=== PATIENT | female | born 1965 | race African-American/Black ===

== ENCOUNTER 2022-07-25 16:36 | Outpatient (CLI) | payer OTHER, SELFPAY ==
--- NOTE | ~2022-07-25 | CT_ITS ---
EXAMINATION:CT lung screening DATE: 07/25/2022 16:55 INDICATION: Tobacco use. Current smoker with 36 pack year history. TECHNIQUE: Computed tomography (CT) of the chest was performed without intravenous contrast. Automate d exposure control and iterative reconstruction technique were employed. The dose-length product (DLP ) was 103.70 mGy-cm. COMPARISON: Chest CT 03/22/2013 FINDINGS: There is stable mild scarring at the lung apices. There is mild emphysema. There is a 2 mm nodule in left upper lobe. There is a 2 mm nodule in right upper lobe. There is minimal atelectasis b ilaterally. No pleural effusion. The heart size is normal. No pericardial effusion. There is a small sliding hiatal hernia. There is mild thoracic spondylosis. IMPRESSION: 1. Lung-RADS category 2: Benign appearance or behavior. Continue annual screening with noncontrast lo w-dose chest CT in 12 months. Reviewed, dictated and finalized at location A. INTERN IMPRESSION: 1. Lung-RADS category 2: Benign appearance or behavior. Continue annual screeni ng with noncontrast low-dose chest CT in 12 months.
== END 2022-07-25 16:37 | disposition home or self-care (01) ==
PROVIDERS: PCP Emergency Medicine; Visit Provider Emergency Medicine
DX: Z12.2 Encounter for screening for malignant neoplasm of respiratory organs (principal); Z72.0 Tobacco use
CPT/HCPCS: 71271

== ENCOUNTER 2022-09-19 17:15 | Outpatient (CLI) | payer OTHER, SELFPAY ==
--- NOTE | ~2022-09-19 | MM_ITS ---
EXAMINATION: MM screening kajal BI w clau HISTORY: Screening mammogram TECHNIQUE: Craniocaudal and mediolateral oblique 3-D tomosynthesis images were obtained and synthetic 2-D images were generated. CAD analysis was submitted and interpreted. COMPARISON: 04/08/2014 bilateral screening mammogram BREAST PARENCHYMAL COMPOSITION: The breasts are almost entirely fatty. FINDINGS: There is no evidence of suspicious mass, calcification, or architectural distortion to sugg est malignancy in either breast. There has been no suspicious interval change. IMPRESSION: 1. No mammographic evidence of malignancy. 2. Recommend routine screening mammography in one year. BI-RADS Category 1: Negative Reviewed, dictated and finalized at location A.
== END 2022-09-19 17:16 | disposition home or self-care (01) ==
LOC: ANHIMG 17:16
PROVIDERS: PCP Emergency Medicine; Visit Provider Emergency Medicine
DX: Z12.31 Encounter for screening mammogram for malignant neoplasm of breast (principal)
CPT/HCPCS: 77063; 77067

== ENCOUNTER 2023-05-08 00:55 | Day surgery (SDC) | payer OTHER, SELFPAY ==
[2023-04-26 13:26] VITALS: BMI 29.3
[2023-05-08 12:58] VITALS: BP 162/97; PULSE 73; RESP 18; TEMP 36.1; O2SAT 100
[2023-05-08] MEDS: LACTATED RINGERS 1,000 ML 150 ML IV CONT (13:14)
--- NOTE | 2023-05-08 13:53 | PM.HPGS ---
History of Present Illness History of Present Illness Consent: Risks, benefits, and alternatives have been discussed and questions answered. Patient agrees to proceed with procedure. Chief complaint: neoplasm screening Narrative: Ryann Hines is a 57 year old female here for first screening colonoscopy Review of Systems Constitutional: Constitutional: Denies headache(s) and Denies weakness Eyes: Eyes: Denies blurry vision ENT: Reports Normal hearing present, Denies headache(s) and Denies neck pain Cardiovascular: Cardiovascular: Denies chest pain and Denies dyspnea Respiratory: Respiratory: Denies dyspnea Gastrointestinal: Gastrointestinal: Reports no additional gastrointestinal complaints Genitourinary: Genitourinary: Denies dysuria Musculoskeletal: Musculoskeletal: Denies neck pain Integumentary/Breasts: Skin/Breast: Denies dry skin Neurologic: Reports Normal hearing present, Denies headache(s) and Denies weakness Psychiatric: Psychiatric: Denies anxiety Endocrine: Endocrine: Denies change in body appearance Hematologic/Lymphatic: Hematologic/Lymphatic: Denies easy bleeding Allergic/Immunologic: Allergic/Immunologic: Denies urticaria PMFSH Past Medical History Medical History (Updated 05/08/23 @ 13:53 by Robbin Valdes MD) Colon cancer screening Social History Social History Smoking packs per day: 0.5 Smoking cigarettes per day: 10.0 Years smoked: 15 Smoking pack-years: 7.50 Smoking status: Current every day smoker Alcohol use details: Socially Substance use: current Substance use type: marijuana Other substance usage details: Socially uses Living arrangements: other Additional living arrangements comments: with sp Meds Home Medications and Allergies Home Medications Medication Instructions Recorded Confirmed Type amlodipine 5 mg tablet 5 mg PO DAILY 04/26/23 04/26/23 History irbesartan 150 mg tablet 150 mg PO DAILY 04/26/23 04/26/23 History rosuvastatin 20 mg tablet 20 mg PO DAILY 04/26/23 04/26/23 History Allergies Allergy/AdvReac Type Severity Reaction Status Date / Time No Known Allergies Allergy Mild Verified 05/08/23 12:56 Vital Signs Vital Signs - 24 hr 05/08/23 12:58 Temperature 97 F L Pulse Rate 73 Respiratory Rate 18 Blood Pressure 162/97 H Pulse Oximetry 100 Oxygen Delivery Room Air Exam Const: General: comfortable and no acute distress HENMT: Face/Nose/Sinus: Normal nares present Eyes: General: appearance normal, both eyes and all related structures Neck: Neck: no JVD Resp: Auscultation: clear to auscultation bilaterally Cardio: Rate: regular rate Rhythm: regular rhythm GI: Inspection: non-distended GI Palp: Yes Soft to palpation Skin: General skin exam: normal color Neuro: General: gait normal Speech: normal speech Extrem: General: normal to inspection Psych: Mental Status: mental status grossly normal Assessment and Plan Assessment and plan (1) Colon cancer screening: Code(s): Z12.11 - Encounter for screening for malignant neoplasm of colon Status: Acute Assessment and Plan: colonoscopy
[2023-05-08 14:18] VITALS: BP 113/70; PULSE 68; RESP 22; O2SAT 100
[2023-05-08 14:28] VITALS: BP 140/100; PULSE 76; RESP 17; O2SAT 100
[2023-05-08 14:38] VITALS: BP 165/97; PULSE 60; RESP 17; O2SAT 100
== END 2023-05-08 14:48 | disposition home or self-care (01) ==
PROVIDERS: PCP Emergency Medicine; Visit Provider Internal Medicine Gastroenterology
PROC: 0DJD8ZZ Inspection of Lower Intestinal Tract, Via Natural or Artificial Opening Endoscopic (ICD-10-PCS; CPT 45378; principal; 2023-05-08 13:30)
DX: Z12.11 Encounter for screening for malignant neoplasm of colon (principal); F17.210 Nicotine dependence, cigarettes, uncomplicated; F12.90 Cannabis use, unspecified, uncomplicated
CPT/HCPCS: 45378; J2704; J7120

== ENCOUNTER 2024-04-22 09:37 | Emergency (ER) | payer MEDICAID, SELFPAY ==
[2024-04-22] VITALS (11 sets, daily range): BP systolic 115–155; BP diastolic 84–95; PULSE 55–88; RESP 12–20; TEMP 36.6–36.9; O2SAT 99–100
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
--- NOTE | ~2024-04-22 | XR_ITS ---
XR wrist RT 2V Ordering provider: Sara Montes APRN History: . post reduction, right wrist . Comparison: 05/23/2024 FINDINGS: BONES: Comminuted fracture in the distal metaphysis of the right radius with improved alignment faby red to previous examination. Extension of the fracture to the joint space is noted. Fracture of the u lnar styloid. Placement in a cast is noted. JOINT SPACES: Narrowing of the radiocarpal joint. SOFT TISSUES: Normal. IMPRESSION: Improved alignment post reduction. Comminuted fracture of the distal radius. Status post placement in a cast. Reviewed, dictated and finalized at location A.
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
--- NOTE | 2024-04-22 10:08 | PC.NURSE ---
pt has meds ordered. pt not in room at the time. pt in xray
[2024-04-22] MEDS: KETOROLAC 15 MG/ML VIAL (*BKC) IV PUSH (10:25)
[2024-04-22] MEDS: MORPHINE SULFATE (*CRX) 4 MG/ML INJ IV PUSH (10:28)
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
[2024-04-22] MEDS: SODIUM CHLORIDE 0.9% IV 1,000 ML 999 ML (11:25)
--- NOTE | 2024-04-22 11:26 | PC.NURSE ---
EDP Dr Pacheco at bedside for cons sedation, EDP admin 80mg Propofol IVP. Pt on tele monitor w/ capnography. VSS.
[2024-04-22] MEDS: HYDROmorphone HCL INJ (*CRX) 1 MG/ML SYR IV PUSH (11:56)
--- NOTE | 2024-04-22 11:59 | PC.NURSE ---
Pt to CT scan via stretcher at this time.
[2024-04-22] MEDS: HYDROcodone/acetaminophen (*CRX) 5-325 MG TABLET 1 TAB PO (13:58)
== END 2024-04-22 14:37 | disposition home or self-care (01) ==
PROVIDERS: Emergency Provider Registered Nurse; PCP Emergency Medicine
DX: S52.571A Other intraarticular fracture of lower end of right radius, initial encounter for closed fracture (principal); S52.611A Displaced fracture of right ulna styloid process, initial encounter for closed fracture; F17.210 Nicotine dependence, cigarettes, uncomplicated; W03.XXXA Other fall on same level due to collision with another person, initial encounter
CPT/HCPCS: 25605; 73080; 73100; 73120; 73200; 96374; 96375; 99285; A4565; A9270; J1171; J1885; J2270; J2704; J7030

== ENCOUNTER 2024-05-24 00:45 | Emergency (ER) | payer OTHER, SELFPAY | END 2024-05-24 02:17 | disposition left against medical advice (07) | PROVIDERS: PCP Emergency Medicine | DX: Z53.21 Procedure and treatment not carried out due to patient leaving prior to being seen by health care provider (principal) | CPT/HCPCS: 99199 ==